=== PATIENT | female | born 1930 | race Caucasian/White ===

== ENCOUNTER 2017-03-01 13:30 | Emergency (ER) | payer MEDICAID, MEDICARE, SELFPAY ==
--- NOTE | 2017-03-01 15:20 | CT ---
CT BRAIN PERFORMED WITHOUT CONTRAST ENHANCEMENT HISTORY: Head injury. FINDINGS: There is marked generalized ventricular and sulcal prominence, with decreased attenuation of the per iventricular white matter. There are no signs of intracerebral hemorrhage or extraaxial fluid colle ctions. The mastoid air cells and visualized sinuses are clear. IMPRESSION: No acute intracranial abnormalities. POS: [facility]
== END 2017-03-01 14:35 | disposition home or self-care (01) ==
LOC: MADERS 13:30
DX: S00.83XA Contusion of other part of head, initial encounter (principal); G30.9 Alzheimer's disease, unspecified; F02.80 Dementia in other diseases classified elsewhere, unspecified severity, without behavioral disturbance, psychotic disturbance, mood disturbance, and anxiety; K21.9 Gastro-esophageal reflux disease without esophagitis; Z79.899 Other long term (current) drug therapy; W18.30XA Fall on same level, unspecified, initial encounter
CPT/HCPCS: 70450